=== PATIENT | female | born 1995 | race Caucasian/White ===

== ENCOUNTER 2022-12-19 00:31 | Observation (INO) | payer OTHER ==
[~2022-12-19] VITALS: Ht 165.1 cm; Wt 77.6 kg
[2022-12-19] VITALS (18 sets, daily range): BP systolic 93–145; BP diastolic 50–88
[2022-12-19 01:05] LABS: BASOPHILS ABSOLUTE AUTO 0.05 K/mm3 (0.00-0.23); BASOPHILS PERCENT AUTO 0 % (0-2); EOSINOPHILS ABSOLUTE AUTO 0.02 K/mm3 (0.00-0.68); EOSINOPHILS PERCENT AUTO 0 % (0-6); Hematocrit 41.1 % (33.0-51.0); Hemoglobin 13.9 g/dL (11.5-16.0); IMMATURE GRAN ABSOLUTE AUTO 0.06 K/mm3 (0.00-0.10); IMMATURE GRAN PERCENT AUTO 0 % (0-1); LYMPHOCYTES ABSOLUTE AUTO 1.69 K/mm3 (0.84-5.20); LYMPHOCYTES PERCENT AUTO 10 % (21-46); MONOCYTES ABSOLUTE AUTO 0.38 K/mm3 (0.16-1.47); MONOCYTES PERCENT AUTO 2 % (4-13); Mean Corpuscular HGB 29.6 pg (26.0-34.0); Mean Corpuscular HGB Conc 33.8 g/dL (31.5-36.5); Mean Corpuscular Volume 87 fL (80-100); Mean Platelet Volume 9.5 fL (9.1-12.4); NEUTROPHILS ABSOLUTE AUTO 14.41 K/mm3 (1.96-9.15); NEUTROPHILS PERCENT AUTO 87 % (41-73); Platelet Count 296 K/mm3 (150-400); RDW Coefficient Variation 11.9 % (11.7-14.2); RDW Standard Deviation 38.7 fL (35.1-46.3); White Blood Cell Count 16.61 K/mm3 (4.00-11.30)
[2022-12-19 01:22] LABS: Albumin/Globulin Ratio 1.1 (0.8-1.8); Bilirubin, Total 0.1 mg/dL (0.1-1.0); Bun/Creatinine Ratio 11.6 (12.0-20.0); Calcium, Blood 8.5 mg/dL (8.5-10.1); Creatinine, Blood 0.78 mg/dL (0.40-1.00); Globulin, Blood 3.6 g/dL (2.2-4.0); Potassium, Blood 3.9 mmol/L (3.5-5.5); Total Protein, Blood 7.6 g/dL (6.4-8.2)
[2022-12-19 02:01] LABS: International Normalized Ratio 1.01; Prothrombin Time Results 10.6 Sec (9.7-11.5)
[2022-12-19] MEDS ORDERED: IBUP200 PO (04:59)
--- NOTE | 2022-12-19 05:54 | NUR ---
ADMISSION/SHIFT SUMMARY PT ARRIVED TO PCU AT APPROX. 0432. SHE WAS ABLE TO TRANSFER INDEPENDENTLY FROM ED BED TO PCU BED AND APPEARED STEADY ON HER FEET. SHE IS ALERT AND ORIENTED X 4 AND INDEPENDENT TO BATHROOM. VSS, SHE IS ON RA AND DENIES FEELING SOB. SHE DENIED EPISODES OF HEMATEMESIS WHILE IN THE HOSPITAL AND REPORTED LAST EPISODE OF VOMITTING WAS APPROX. 12/18/22 AT 2000. SHE REPORTED MINIMAL NAUSEA, PLEASE SEE EMAR FOR NAUSEA MANAGEMENT. PROTONIX DRIP INFUSING PER EMAR ORDERS. NO COUGH NOTED, SHE DENIED FEELINGS OF CHEST PAIN/PRESSURE. GI CONSULT CALLED INTO ANSWERING SERVICE BY THIS RN, PLEASE SEE ORDER REGARDING TIME CALL PLACED. PT REPORTED THAT SHE IS ON HER 1ST DAY OF MENSTRUAL CYCLE W/ 10 PAIN. HEATING PAD PROVIDED. PT IS STRICT NPO STATUS DUE TO GI CONSULT/POSSIBLE PROCEDURE. PT NOW APPEARS TO BE SLEEPING COMFORTABLY, CALL LIGHT W/IN REACH.
[2022-12-19 06:11] LABS: Hematocrit 39.3 % (33.0-51.0); Hemoglobin 13.4 g/dL (11.5-16.0); Mean Corpuscular HGB 29.7 pg (26.0-34.0); Mean Corpuscular HGB Conc 34.1 g/dL (31.5-36.5); Mean Corpuscular Volume 87 fL (80-100); Mean Platelet Volume 9.8 fL (9.1-12.4); Platelet Count 281 K/mm3 (150-400); RDW Coefficient Variation 12.2 % (11.7-14.2); RDW Standard Deviation 39.2 fL (35.1-46.3); Red Blood Cell Count 4.51 M/mm3 (3.80-5.20); White Blood Cell Count 12.12 K/mm3 (4.00-11.30)
[2022-12-19 06:28] LABS: Bun/Creatinine Ratio 9.3 (12.0-20.0); Calcium, Blood 8.2 mg/dL (8.5-10.1); Creatinine, Blood 0.75 mg/dL (0.40-1.00); Potassium, Blood 3.7 mmol/L (3.5-5.5)
--- NOTE | 2022-12-19 11:11 | NUR ---
IV SITE LFA SITE D&I/PATENT.
--- NOTE | 2022-12-19 11:29 | NUR ---
12/19/22 1129 [address] Wallis HISTORY, CHART, MEDICATIONS AND ALLERGIES REVIEWED BEFORE START OF PROCEDURE. PATIENT CONFIRMS NPO STATUS AND AGREES WITH SCHEDULED PROCEDURE. 3-LEAD EKG REVIEWED WITH PHYSICIAN PRIOR TO START OF PROCEDURE. MONITOR INTACT WITH CONTINUOUS PULSE OXIMETRY,CAPNOGRAPHY, 3-LEAD EKG, INTERMITTENT BP. SUPPLEMENTAL O2 TO BE TITRATED THROUGHOUT PROCEDURE TO MAINTAIN O2 SATURATION ABOVE 90%. PATIENT DETERMINED TO BE ASA APPROPRIATE FOR PROPOFOL SEDATION PRIOR TO START OF PROCEDURE BY DR. MANUEL.
[2022-12-19] MEDS ORDERED: OMEP20ER PO (13:47)
== END 2022-12-19 14:55 | disposition home or self-care (01) ==
LOC: ER 00:31 → PCU 00:32 → EDBEDREQ 03:14 → EDBEDREQTM 03:14 → PCU 04:18
PROVIDERS: Student in an Organized Health Care Education/Training Program; ADMIT Internal Medicine
DX: K92.0 Hematemesis (principal); R55 Syncope and collapse; F10.129 Alcohol abuse with intoxication, unspecified; D72.829 Elevated white blood cell count, unspecified; F17.200 Nicotine dependence, unspecified, uncomplicated
CPT/HCPCS: 36415; 71046; 80048; 80053; 85025; 85027; 85610; 93005; 93010; 96360; 96361; 96365; 96366; 96374; 96375; 96376; 99285-25; C9113; G0008; G0378; J2250; J2405; J2704; J3411; J7030; J7120; Q2036